=== PATIENT | male | born 1970 | race Caucasian/White ===

== ENCOUNTER 2021-05-28 08:58 | Emergency (ER) | payer OTHER, SELFPAY ==
[2021-05-28 09:13] VITALS: BP 149/79; PULSE 78; RESP 16; TEMP 36.3; O2SAT 98
--- NOTE | 2021-05-28 09:37 | ED.MALEGU ---
HPI - Male Genitourinary General Chief complaint: Urogenital-Male Stated complaint: uti Time Seen by Provider: 05/28/21 09:37 Source: patient Mode of arrival: ambulatory Limitations: no limitations History of Present Illness HPI Narrative: [place] is a 50 yo male who states he has no comorbidities and states that about 2 weeks ago he started having dark-colored urine and occasional discharge. States it feels irritated most of the time around the head of his penis and he denies multiple unprotected partner states he has 1 sexual partner in the last 2 years since his . Although he appears to be altered state state he denies drug use Related Data Allergies Allergy/AdvReac Type Severity Reaction Status Date / Time No Known Allergies Allergy Unverified 09/19/15 13:20 Review of Systems Review of Systems: CONSTITUTIONAL: Denies fever, chills, sweats. EYES: Denies visual changes, redness, discharge. ENT: Denies rhinorrhea, congestion, sore throat, otalgia. CARDIOVASCULAR: Denies chest pain, palpitations, edema. RESPIRATORY: Denies dyspnea, wheezing, cough GASTROINTESTINAL: Denies abdominal pain, nausea, vomiting, diarrhea. GENITOURINARY: Has dysuria, hematuria, abnormal discharge SKIN: Denies rash or itching. NEUROLOGIC: Denies numbness, or focal weakness. PSYCHIATRIC: Denies anxiety or depression. PMFSH Past Medical History Medical History No acute medical problems Family History Family History Other Diabetes mellitus Social History Social History (Updated 05/28/21 @ 09:54 by Brandi Dickey CNP) Smoking status: Former smoker Alcohol intake: current Comments At time of signature, I agree with nursing past medical, surgical, social and family history. There is no relevant family history pertinent to the presenting complaint. Patient has elevated blood pressure at this visit and needs to follow-up with primary care Exam Narrative: GENERAL: This is a well-nourished, well-developed patient, in mild distress. HEAD: normocephalic, atraumatic. EYES: Sclera clear/white. Vision is grossly intact. EARS: External ears normal, . Hearing grossly intact. NOSE: External nose normal without nasal discharge, nares without redness, no rhinorrhea. THROAT: Mucous membranes moist, NECK: Neck supple, non-tender CARDIOVASCULAR: Regular rate and rhythm without murmurs, gallops, or rubs. RESPIRATORY: Clear to auscultation. Breath sounds equal bilaterally. No wheezes, rales, or rhonchi. GASTROINTESTINAL: Abdomen soft, non-tender, SKIN: warm, intact with no suspicious lesions or rash, good texture and turgor. NEURO: awake, alert, and oriented to person, place and time. There were no obvious focal neurologic abnormalities. Steady gait EXTREMITIES: Normal range of motion. BACK: Nontender without deformity Course Course Emergency Course: Patient comes with complaints of urinary tract discharge and concentrated urine Urine dip is 3+ positive leuks and trace blood; urine sent for GC chlamydia screen Started on Cipro 500 mg 1 twice daily x5 days Vital Signs Vital signs: Vital Signs Temperature 97.4 F L 05/28/21 09:13 Pulse Rate 78 05/28/21 09:13 Respiratory Rate 16 05/28/21 09:13 Blood Pressure 149/79 H 05/28/21 09:13 Pulse Oximetry 98 05/28/21 09:13 Temperature 97.4 F L 05/28/21 09:13 Pulse Rate 78 05/28/21 09:13 Respiratory Rate 16 05/28/21 09:13 Blood Pressure 149/79 H 05/28/21 09:13 Pulse Oximetry 98 05/28/21 09:13 MDM - Male Genitourinary Differential Diagnosis Differential diagnosis: Likely urinary tract infection, urethritis, epididymitis, prostatitis, inguinal hernia and other Lab Data Labs: Urine Glucose Negative Reference Range: Negative Urine Bilirubin Negative
== END 2021-05-28 10:13 | disposition home or self-care (01) ==
PROVIDERS: Emergency Provider Nurse Practitioner
DX: N30.01 Acute cystitis with hematuria (principal); Z20.2 Contact with and (suspected) exposure to infections with a predominantly sexual mode of transmission; Z87.891 Personal history of nicotine dependence
CPT/HCPCS: 81003; 87086; 87491; 87591; 99213; G0463

== ENCOUNTER 2021-06-01 14:47 | Emergency (ER) | payer OTHER, SELFPAY ==
[2021-06-01 14:56] VITALS: BP 142/87; PULSE 99; RESP 16; TEMP 36.7; O2SAT 100
--- NOTE | 2021-06-01 16:20 | ED.GENADULT ---
HPI - General Adult General Chief complaint: Recheck/Abnormal Lab/Rx Stated complaint: STD,Neck Pain Time Seen by Provider: 06/01/21 16:20 Source: patient Mode of arrival: ambulatory Limitations: no limitations History of Present Illness HPI narrative: 50-year-old male to [facility] with complaints of testing positive for gonorrhea and is here today for STD treatment.He also was found to have UTI on last visit but has never filled script he received of CIpro for the UTI.Patient reports that he still has some dark urine and has some penile discharge. Patient reports that his neck is kind of sore today must of slept on it wrong, has not taken anything OTC for his discomfort. Patient is moving all extremities on own power, no neuralgia, pulses strong. MD complaint: STD Onset (ago): day(s) (5) Related Data Allergies Allergy/AdvReac Type Severity Reaction Status Date / Time No Known Allergies Allergy Unverified 09/19/15 13:20 Review of Systems Review of Systems: CONSTITUTIONAL: Denies fever, chills, or sweats. EYES: Denies visual changes, redness, or discharge. ENT: Denies rhinorrhea, congestion, sore throat, or otalgia. CARDIOVASCULAR: Denies chest pain, palpitations, or edema. RESPIRATORY: Denies cough or dyspnea. GASTROINTESTINAL: Denies abdominal pain, nausea, vomiting, or diarrhea. GENITOURINARY: Patient continues to have dark urine with some penile discharge, no noted hematuria. SKIN: Denies rash or itching. MUSCULOSKELETAL: Denies back pain, joint pain, or myalgia.Patient states that he thinks he slept on his neck wrong kind of achy today. NEUROLOGIC: Denies headache, numbness, or weakness. PSYCHIATRIC: Denies anxiety or depression. All systems reviewed & are unremarkable except as noted in HPI and below PMFSH Past Medical History Medical History (Updated 06/06/21 @ 13:30 by Mildred Estes NP) Asthma Hypoglycemia STD (sexually transmitted disease) Surgical History Surgical History (Updated 06/06/21 @ 13:28 by Mildred Estes NP) No history of previous surgery Family History Family History Other Diabetes mellitus Social History Social History Smoking status: Former smoker Alcohol intake: current Comments At time of signature, agree with nursing past medical, surgical, social and family history. There is no relevant family history pertinent to the presenting complaint Exam Narrative: GENERAL: Well-appearing, well-nourished, and in no acute distress. HEAD: Normocephalic, atraumatic. EYES: PERRLA and EOMI. ENT: Nares clear, no rhinorrhea or epistaxis. Mucous membranes moist. NECK: Supple.no lymphadenopathy, no nuchal rigidity, moves all extremities well no neuralgia CHEST: Clear to auscultation. No respiratory distress.SAO2 100% on room air HEART: Regular rate and rhythm. No murmur heard. Normal peripheral pulses. ABDOMEN: Soft, nontender, nondistended, normal active bowel sounds.No CVA tenderness EXTREMITIES: Normal range of motion. No edema. SKIN: Warm, dry, no rash. NEURO: No focal deficits. Alert and oriented x3. Course Vital Signs Vital signs: Vital Signs Temperature 36.7 C 06/01/21 14:56 Pulse Rate 99 06/01/21 14:56 Respiratory Rate 16 06/01/21 14:56 Blood Pressure 142/87 H 06/01/21 14:56 Pulse Oximetry 100 06/01/21 14:56 Temperature 36.7 C 06/01/21 14:56 Pulse Rate 99 06/01/21 14:56 Respiratory Rate 16 06/01/21 14:56 Blood Pressure 142/87 H 06/01/21 14:56 Pulse Oximetry 100 06/01/21 14:56 Medical Decision Making [facility] Narrative Medical decision making narrative: Patient received injection of Rocephin 1gram as treatment for STD in clinic today without reaction noted Differential Diagnosis Differential Diagnosis: Positive STD, here today for treatment, UTI diagnosed prior, patient did not shrimp picker antibiotic(noncompliance). Medical Recor
[2021-06-01] MEDS: cefTRIAXone 1 GM VIAL IM (16:38)
[2021-06-01] MEDS: LIDOCAINE HCL 1% LOCAL INJ 20 ML VIAL 2.1 ML IM (16:39)
== END 2021-06-01 17:00 | disposition home or self-care (01) ==
PROVIDERS: Emergency Provider Registered Nurse; PCP Internal Medicine
DX: A64 Unspecified sexually transmitted disease (principal)
CPT/HCPCS: 96372; 99213; G0463; J0696

== ENCOUNTER 2022-05-19 20:08 | Emergency (ER) | payer OTHER, SELFPAY ==
--- NOTE | 2022-05-19 20:11 | ED.MALEGU ---
HPI - Male Genitourinary General Chief complaint: Urogenital-Male Stated complaint: uti Time Seen by Provider: 05/19/22 20:40 Source: patient and RN notes reviewed Mode of arrival: ambulatory Limitations: no limitations History of Present Illness HPI Narrative: 51-year-old male presents with concern for dysuria and possible urinary tract infection. Reports discomfort with urination, hesitancy. He reports he was treated for gonorrhea in the past, he has not had any known exposure to gonorrhea. He denies discharge, abdominal pain, fever, bodies, chills, sweats. Denies testicular redness, swelling, pain MD Complaint: dysuria Related Data Allergies Allergy/AdvReac Type Severity Reaction Status Date / Time No Known Allergies Allergy Unverified 09/19/15 13:20 Review of Systems Review of Systems: CONSTITUTIONAL: Denies malaise, chills, sweats, or fever. CARDIOVASCULAR: Denies chest pain, palpitations, or edema. RESPIRATORY: Denies cough or dyspnea. GASTROINTESTINAL: Denies abdominal pain, nausea, vomiting, diarrhea GENITOURINARY: Reports dysuria, hesitancy. Denies frequency, urgency, suprapubic pressure. Denies flank pain or hematuria. SKIN: Denies rash or itching. MUSCULOSKELETAL: Denies back pain or myalgia. All systems reviewed & are unremarkable except as noted in HPI and below PMFSH Past Medical History Medical History (Updated 05/19/22 @ 21:21 by Yelitza Gloria NP) Asthma Hypoglycemia STD (sexually transmitted disease) Surgical History Surgical History (Updated 06/06/21 @ 13:28 by Mildred Estes NP) No history of previous surgery Family History Family History Other Diabetes mellitus Social History Social History Smoking status: Former smoker Alcohol intake: current Comments At time of signature, agree with nursing past medical, surgical, social and family history. There is no relevant family history pertinent to the presenting complaint Exam Narrative: GENERAL: Well-appearing, well-nourished, and in no acute distress. HEAD: Normocephalic. EYES: PERRLA, conjunctivae clear. NECK: Supple. No lymphadenopathy CHEST: Clear to auscultation. No respiratory distress. HEART: Regular rate and rhythm. SKIN: Warm, dry, no rash. NEURO: Alert and oriented x3. PSYCH: Normal mood and affect Course Course Emergency Course: Patient would like to be checked again for STDs, discussed leukocytes in his urine can indicate a possible urinary tract infection. Patient would prefer to be treated for urinary tract infection and wait for results of STDs before treating for any STDs as he has not had any known exposure. He understands he may have to return for and intramuscular antibiotic injection, he is agreeable. Patient is aware of diagnosis, understands and agrees to treatment plan. Anticipatory guidance given. Patient agrees to follow-up as directed and is aware of reasons to seek care at the emergency department. Portions of this record may have been created with voice recognition software Level of Care: Express Care Visit Vital Signs Vital signs: Vital Signs Temperature 98.4 F 05/19/22 20:42 Pulse Rate 85 05/19/22 20:42 Respiratory Rate 16 05/19/22 20:42 Blood Pressure 151/93 H 05/19/22 20:42 Pulse Oximetry 99 05/19/22 20:42 Oxygen Delivery Room Air 05/19/22 20:42 Temperature 98.4 F 05/19/22 20:42 Pulse Rate 85 05/19/22 20:42 Respiratory Rate 16 05/19/22 20:42 Blood Pressure 151/93 H 05/19/22 20:42 Pulse Oximetry 99 05/19/22 20:42 Oxygen Delivery Room Air 05/19/22 20:42 Reviewed. MDM - Male Genitourinary Lab Data Labs: Lab Results 05/19/22 05/19/22 Range/Units 21:05 21:05 C.trachomatis RNA (TMA) Pending N.gonorrhoeae RNA (TMA) Pending T. vaginalis Amp RNA Pending Urine Glucose Negative
[2022-05-19 20:42] VITALS: BP 151/93; PULSE 85; RESP 16; TEMP 36.9; O2SAT 99
== END 2022-05-19 21:38 | disposition home or self-care (01) ==
PROVIDERS: Emergency Provider Nurse Practitioner; PCP Internal Medicine
DX: R30.0 Dysuria (principal); J45.909 Unspecified asthma, uncomplicated; Z87.891 Personal history of nicotine dependence
CPT/HCPCS: 81003; 87086; 87491; 87591; 87661; 99213; G0463

== ENCOUNTER 2022-09-24 13:42 | Emergency (ER) | payer OTHER, SELFPAY ==
[2022-09-24 14:06] VITALS: BP 139/76; PULSE 106; RESP 16; TEMP 37.5; O2SAT 99
--- NOTE | 2022-09-24 14:20 | ED.URI ---
HPI - URI/Sore Throat General Chief Complaint: Upper Respiratory Infection Stated Complaint: Cough Time Seen by Provider: 09/24/22 13:57 Source: patient Mode of arrival: ambulatory Limitations: no limitations History of Present Illness HPI Narrative: [place] is a 52-year-old male patient presenting to clinic today with complaints of a nonproductive cough. He reports he feels as though there is inflammation in his chest wall. He reports symptoms started 2 days ago. He denies having a productive cough, fever, chills. He does report some nasal congestion and some drainage going in the back of his throat. History of asthma MD elicited complaint: cough and nasal congestion Related Data Allergies Allergy/AdvReac Type Severity Reaction Status Date / Time No Known Allergies Allergy Verified 09/24/22 13:57 Review of Systems Review of Systems: Pertinent positives per HPI. Patient denies any fever, chills, rash, headache, visual changes, dizziness, shortness of breath, chest pain, palpitations, nausea, vomiting, diarrhea, constipation, abdominal pain, or any urinary issues. [facility] Past Medical History Medical History Asthma Hypoglycemia STD (sexually transmitted disease) Surgical History Surgical History No history of previous surgery Family History Family History Other Diabetes mellitus Social History Social History Smoking status: Former smoker Alcohol intake: current Comments At the time of my signature, I reviewed and agree with the nursing past medical, surgical, social, and family history. There is no relevant family history pertinent to the patient complaint. Exam Narrative: General: Well-developed, well nourished, in no apparent distress Head: Normocephalic, atraumatic Eyes: Pupils equally round and reactive to light bilaterally, EOM intact, sclera and conjunctive clear, no discharge, lids normal Ears: TMs intact and clear, ear canals clear, no drainage, grossly hearing normal. Nose: Nares patent, clear nasal discharge, no inflammation, no sinus tenderness. Mouth: Oral pharynx without lesions or masses, good dentition, MMM. postnasal Neck: Supple, trachea midline, no enlargement of anterior or posterior cervical nodes, no thyroid masses or goiter palpable. Cardio: Regular rate and rhythm, s1 and s2 normal, no murmur appreciated. Resp: Clear to auscultation bilaterally, no rhonchi, rales, wheezing or rubs Course Course Emergency Course: Portions of this record may have been created with voice recognition software. Level of Care: Express Care Visit Vital Signs Vital signs: Vital Signs Temperature 37.5 C 09/24/22 14:06 Pulse Rate 106 H 09/24/22 14:06 Respiratory Rate 16 09/24/22 14:06 Blood Pressure 139/76 09/24/22 14:06 Pulse Oximetry 99 09/24/22 14:06 Oxygen Delivery Room Air 09/24/22 14:06 Temperature 37.5 C 09/24/22 14:06 Pulse Rate 106 H 09/24/22 14:06 Respiratory Rate 16 09/24/22 14:06 Blood Pressure 139/76 09/24/22 14:06 Pulse Oximetry 99 09/24/22 14:06 Oxygen Delivery Room Air 09/24/22 14:06 Vital signs reviewed MDM - URI/Sore Throat MDM Narrative Medical decision making narrative: At the time of the patient is resting comfortably on the exam table. COVID testing was completed and was negative in the clinic today. I suspect the patient has URI/bronchitis. Prescription for albuterol inhaler and prednisone was sent to the pharmacy. Supportive measures were discussed with the patient he voiced understanding of discharge instructions agrees to treatment plan Differential Diagnosis Differential diagnosis: Likely upper respiratory infection, otitis media, sinusitis, viral infection, bronchitis,
== END 2022-09-24 13:58 | disposition home or self-care (01) ==
PROVIDERS: Emergency Provider Nurse Practitioner Family; PCP Internal Medicine
DX: J40 Bronchitis, not specified as acute or chronic (principal); J06.9 Acute upper respiratory infection, unspecified; Z20.822 Contact with and (suspected) exposure to COVID-19; J45.909 Unspecified asthma, uncomplicated; Z87.891 Personal history of nicotine dependence
CPT/HCPCS: 87426; 99213; C9803; G0463

== ENCOUNTER 2024-01-19 22:13 | Emergency (ER) | payer OTHER, SELFPAY ==
--- NOTE | ~2024-01-19 | CT_ITS ---
CT of the Abdomen and Pelvis: Indication: Abdominal pain Technique: 2.5 mm axial scans were obtained through the abdomen and pelvis following intravenous adm inistration of 100 cc of Omnipaque 350. Dose reduction technique was used on this scan by utilizing a utomated exposure control and iterative reconstruction technique. The dose-length product (DLP) was 2 60.09 mGy-cm. Findings: Scans through the lung bases demonstrates patchy opacity at the medial left lung base. The liver, spleen, pancreas, gallbladder, adrenals and kidneys are within normal limits. No evidence of aortic aneurysm. No lymphadenopathy. There are multiple dilated small bowel loops, with probable transition point in the right mid abdomen . No definite obstructing mass evident. There is some fluid distention of the cecum/right colon. Images through the pelvis were performed. Urinary bladder unremarkable. No pelvic mass seen. No ascit es. Impression: Suspected small bowel obstruction with probable transition point as noted above.: The patient's and h ematology. Ileus and/or diarrheal illness would be a potential alternative consideration. Patchy opacity medial left lung base likely represents atelectatic change. Coracoclavicular pneumonia . Reviewed, dictated and finalized at [facility]. Impression: Suspected small bowel obstruction with probable transition point as noted above .: The patient's and hematology. Ileus and/or diarrheal illness would be a pote ntial alternative consideration. Patchy opacity medial left lung base likely represents atelectatic change. Emily coclavicular pneumonia.
[2024-01-19 22:29] VITALS: BP 173/90; PULSE 65; RESP 15; TEMP 36.3; O2SAT 100
[2024-01-19] MEDS: SODIUM CHLORIDE 0.9% IV 1,000 ML 999 ML IV CONT ×2 (23:20→23:39)
[2024-01-19 23:21] VITALS: BP 161/96; PULSE 66; RESP 12; TEMP 37.2; O2SAT 98
[2024-01-19 23:30] LABS: Basophils Percent Auto 0.5 % (0.2-1.2); Eosinophils Percent Auto 0.5 % (0-4.4); Hematocrit 43.9 % (42.0-52.0); Hemoglobin 14.5 g/dL (14.0-18.0); Immature Granulocyte Absolute 0.03 K/mm3 (0.00-0.031); Immature Granulocyte Percent A 0.4 % (0-0.5); Lymphocytes Absolute Auto 1.11 K/mm3 (0.9-3.2); Lymphocytes Percent Auto 13.6 % (18.3-44.2); Mean Corpuscular Hemoglobin 32.2 pg (26-34); Mean Corpuscular Volume 97.6 fl (80-100); Mean Platelet Volume 8.6 fl (7.4-10.4); Monocytes Absolute Auto 0.7 K/mm3 (0.1-0.6); Monocytes Percent Auto 8.1 % (2.6-8.5); Neutrophils Absolute Auto 6.3 K/mm3 (1.3-6.7); Neutrophils Percent Auto 76.9 % (45.5-73.1); Platelet Count Result 568 k/mm3 (150-375); White Blood Count 8.1 K/mm3 (4.5-10.0)
--- NOTE | 2024-01-19 23:34 | ED.NAVMDI ---
HPI - Nausea/Vomiting/Diarrhea General Chief complaint: Nausea/Vomiting/Diarrhea <OLIVIA Pat Last Filed: 01/20/24 03:20> Stated complaint: n/v/ abdominal pain <OLIVIA Pat Last Filed: 01/20/24 03:20> Time Seen by Provider: 01/19/24 23:26 <OLIVIA Pat Last Filed: 01/20/24 03:20> History of Present Illness HPI Narrative: 53-year-old male presents to emergency department via EMS for nausea, vomiting, diarrhea and abdominal pain for the past few hours. Patient states around 11:00 a.m. he ate beef stew and then had 4 [id number] tacos. A few hours later he began developing nausea, vomiting and watery diarrhea. He denies known fever but states he feels feverish. Denies dysuria or hematuria, prior abdominal surgeries, melena or hematochezia. Denies recent surgeries or hospitalizations, recent antibiotic use. <OLIVIA Pat Last Filed: 01/20/24 03:20> Related Data Allergies/Adverse reactions: Allergies Allergy/AdvReac Type Severity Reaction Status Date / Time No Known Allergies Allergy Verified 09/24/22 13:57 <OLIVIA Pat Last Filed: 01/20/24 03:20> Review of Systems Review of Systems: CONSTITUTIONAL: Denies fever, chills, or sweats. EYES: Denies visual changes, redness, or discharge. ENT: Denies rhinorrhea, congestion, sore throat, or otalgia. CARDIOVASCULAR: Denies chest pain, palpitations, or edema. RESPIRATORY: Denies cough or dyspnea. GASTROINTESTINAL: See HPI GENITOURINARY: Denies dysuria or hematuria. SKIN: Denies rash or itching. MUSCULOSKELETAL: Denies back pain, joint pain, or myalgia. NEUROLOGIC: Denies headache, numbness, or weakness. PSYCHIATRIC: Denies anxiety or depression. <OLIVIA Pat Last Filed: 01/20/24 03:20> [facility] Past Medical History Medical History: Medical History Asthma Hypoglycemia STD (sexually transmitted disease) <Airam Vicente PA-C - Last Filed: 01/20/24 03:20> Surgical History Surgical History: Surgical History No history of previous surgery <Airam Vicente PA-C - Last Filed: 01/20/24 03:20> Family History Family History: Family History Other Diabetes mellitus <Airam Vicente PA-C - Last Filed: 01/20/24 03:20> Social History Social History: Social History Smoking status: Former smoker Alcohol intake: current <Airam Vicente PA-C - Last Filed: 01/20/24 03:20> Exam Narrative: GENERAL: Well-appearing, well-nourished, and in no acute distress. HEAD: Normocephalic, atraumatic. EYES: PERRLA and EOMI. ENT: Nares clear, no rhinorrhea or epistaxis. Mucous membranes moist. NECK: Supple. CHEST: Clear to auscultation. No respiratory distress. HEART: Regular rate and rhythm. No murmur heard. Normal peripheral pulses. ABDOMEN: Normoactive bowel sounds. Abdomen soft with tenderness in the right lower quadrant, voluntary guarding. No rebound or rigidity. No CVA tenderness. EXTREMITIES: Normal range of motion. No edema. SKIN: Warm, dry, no rash. NEURO: No focal deficits. Alert and oriented x3 <Airam Vicente PA-C - Last Filed: 01/20/24 03:20> Course CUSTOMER SUPPORT ASSISTANT/PA Physician Supervision For this patient encounter, I reviewed the CUSTOMER SUPPORT ASSISTANT or PA documentation, treatment plan, and medical decision making and had [id number] time with this patient. I performed all aspects of the MDM as documented. <Kamala Florian MD - Last Filed: 01/20/24 04:25> Vital Signs Vital signs: Vital Signs Temperature 97.3 F L 01/19/24 22:29 Pulse Rate 65 01/19/24 22:29 Respiratory Rate 15 01/19/24 22:29 Blood Pressure 173/90 H 01/19/24 22:29 Pulse Oximetry 100 01/19/24 22:29 Oxygen Delivery R
[2024-01-19] MEDS: ONDANSETRON INJ 4 MG/2 ML VIAL IV PUSH (23:39)
[2024-01-19] MEDS: FAMOTIDINE 20 MG/2 ML VIAL IV PUSH (23:39)
[2024-01-19 23:44] LABS: Alanine Aminotransferase 29 U/L (6-50); Albumin Level 4.4 g/dL (3.5-5.1); Alkaline Phosphatase 95 U/L (38-126); Anion Gap 6 mmol/L (4-12); Aspartate Amino Transferase 35 U/L (17-59); Bilirubin,Total 0.7 mg/dL (0.2-1.3); Blood Urea Nitrogen 22 mg/dL (9-20); Calcium 9.2 mg/dL (8.4-10.2); Carbon Dioxide 28 mmol/L (22-30); Chloride 98 mmol/L (98-107); Estimated CRCL calculation 94 ml/min; Estimated Glomerular Filt Rate > 60; Glucose 107 mg/dL (65-110); Lipase 163 U/L (23-300); Potassium 4.7 mmol/L (3.4-5.0); Sodium 132 mmol/L (137-145)
[2024-01-19 23:53] LABS: Magnesium 2.2 mg/dL (1.6-2.3)
[2024-01-19 23:57] LABS: Lactic Acid Reflex 1.6 mmol/L (0.7-2.0)
[2024-01-20 00:21] LABS: Influenza A QL RT-PCR Negative (Negative); Influenza B QL RT-PCR Negative (Negative); RSV RNA, RT-PCR Negative (Negative); SARS-CoV-2 RNA PCR Negative (Negative)
[2024-01-20 01:30] LABS: Appearance Urine Clear (Clear); Bacteria Urine None Seen /hpf; Bilirubin Urine Negative (Negative); Blood Urine Negative (Negative); Color Urine Yellow (Yellow); Glucose Urine UA Negative (Negative); Ketones Urine Trace mg/dL (Negative); Leukocyte Esterase Ur Negative LEU/UL (Negative); Nitrate Urine Negative (Negative); Non Pathogenic Casts 0-2; Protein Urine Trace mg/dL (Negative); RBC Urine 0-2 /hpf (0-2); Squamous Epithelial Cell Urine None Seen /hpf (Few); Urobilinogen Urine 0.2 mg/dL (<2.0); WBC Urine 0-5 /hpf (0-3); pH Urine 5.5 (5.0-9.0)
[2024-01-20 01:34] LABS: Specific Grav Ur 1.045 (1.001-1.035)
[2024-01-20 01:35] LABS: Add Urine Microscopic? YES
[2024-01-20] MEDS: AZITHROMYCIN 250 MG TABLET 500 MG PO (01:53)
[2024-01-20] MEDS: AMOXICILLIN/CLAVULANATE K 875-125 MG TAB 1 TABLET PO (01:54)
[2024-01-20] MEDS: SODIUM CHLORIDE 0.9% IV 1,000 ML 999 ML IV CONT (03:07)
[2024-01-20] MEDS: METOCLOPRAMIDE HCL INJ 10 MG/2 ML VIAL IV PUSH (03:07)
[2024-01-20 06:15] VITALS: BP 136/80; PULSE 82; RESP 16; O2SAT 98
--- NOTE | 2024-01-20 06:18 | PC.NURSE ---
Pt in waiting room awaiting consult with care coordination. Pt soiled his only pair of clothes and asked for help finding a homeless [place] [facility] facility.
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
== END 2024-01-20 07:12 | disposition home or self-care (01) ==
PROVIDERS: Physician Assistant; Emergency Provider Emergency Medicine
DX: K52.9 Noninfective gastroenteritis and colitis, unspecified (principal); R91.8 Other nonspecific abnormal finding of lung field; Z20.822 Contact with and (suspected) exposure to COVID-19; J45.909 Unspecified asthma, uncomplicated; Z87.891 Personal history of nicotine dependence
CPT/HCPCS: 36415; 74177; 80053; 81001; 82248; 83605; 83690; 83735; 85025; 87637; 96361; 96374; 96375; 99284; A9270; J2405; J2765; J7030; Q9967

== ENCOUNTER 2025-09-10 11:14 | Emergency (ER) | payer OTHER, SELFPAY ==
--- NOTE | ~2025-09-10 | XR_ITS ---
EXAMINATION: XR wrist LT min 3V, 09/10/2025 12:35 STONE TRIMMER HISTORY: pain following fall COMPARISON: No comparisons available. Findings: Age-indeterminate fracture of the mid scaphoid. 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 There is widening of the scapholunate space with ligamentous injury suspected. Soft tissues unremarkable. Impression: Age-indeterminate fracture of the scaphoid. CT recommended to assess Reviewed, dictated and finalized at location P. E TRIMMER Impression: Age-indeterminate fracture of the scaphoid. CT recommended to assess
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
--- NOTE | ~2025-09-10 | CT_ITS ---
EXAM/PROCEDURE: CT wrist LT wo con HISTORY: age indeterminate scaphoid fracture COMPARISON: None available. TECHNIQUE: CT left wrist FINDINGS: No acute fracture lucency identified. The scaphoid is dysplastic and appears to be mildly rotated. 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 Punctate calcifications about the radial aspect the carpal bones probably associated with chronic degenerative changes but tiny acute avulsion fracture is difficult to exclude compromise. There is mild separation of the scapholunate space which measures approximately 4.5 mm. Moderately severe degenerative changes are present throughout the remainder of the carpal bones. No gross acute soft tissue process seen. IMPRESSION: 1. Severe degenerative changes at the radioscaphoid articulation and dysplastic appearance of the scaphoid probably from old injury/fracture. No definite acute fracture seen. Separation of the scapholunate space is consistent with disruption of the scapholunate ligament. Consider correlation with left wrist MRI for optimal evaluation. 2. Milder degenerative changes throughout the remainder of the wrist. Reviewed, dictated and finalized at location A. S PROJECT COORDINATOR IMPRESSION: 1. Severe degenerative changes at the radioscaphoid articulation and dysplastic appearance of the scaphoid probably from old injury/fracture. No definite acut e fracture seen. Separation of the scapholunate space is consistent with disrup tion of the scapholunate ligament. Consider correlation with left wrist MRI for optimal evaluation. 2. Milder degenerative changes throughout the remainder of the wrist.
[2025-09-10 11:22] VITALS: BP 132/98; PULSE 67; RESP 20; TEMP 36.4; O2SAT 100
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
[2025-09-10] MEDS: TETANUS,DIPHTHERIA,AC PERTUSSIS ADULT (0.5 ML) BOOSTRIX IM (12:47)
[2025-09-10 15:00] VITALS: BP 128/80; PULSE 66; RESP 18; O2SAT 100
== END 2025-09-10 15:12 | disposition home or self-care (01) ==
PROVIDERS: Emergency Provider Nurse Practitioner Family
DX: S01.01XA Laceration without foreign body of scalp, initial encounter (principal); S63.502A Unspecified sprain of left wrist, initial encounter; S16.1XXA Strain of muscle, fascia and tendon at neck level, initial encounter; J45.909 Unspecified asthma, uncomplicated; Y35.813A Legal intervention involving manhandling, suspect injured, initial encounter
CPT/HCPCS: 12001; 70450; 72125; 73110; 73200; 90471; 90715; 99284